=== PATIENT | male | born 1975 | race Caucasian/White ===

== ENCOUNTER 2017-08-02 22:11 | Emergency (ER) | payer OTHER ==
[~2017-08-02] VITALS: Ht 185.4 cm; Wt 88.5 kg
--- NOTE | 2017-08-03 01:13 | NUR ---
DR. ADAN IS AT THE BEDSIDE
[2017-08-03] MEDS ORDERED: ONDANSETRON HCL/PF 4 MG/2 ML VIAL ONE (01:19)
[2017-08-03] MEDS ORDERED: KETOROLAC TROMETHAMINE INJ 30 MG/ML VIAL ONE (01:19)
[2017-08-03 01:30] LABS: BASOPHILS % (AUTO) 0.2 % (0.0-2.0); EOSINOPHILS # (AUTO) 0.2 /CMM (0.0-0.7); HEMATOCRIT 44 % (39-51); HEMOGLOBIN 14.9 g/dL (13.5-17.5); LYMPHOCYTES % (AUTO) 30.9 % (20.0-44.0); MEAN CORPUSCULAR HEMOGLOBIN 31 PG (26.0-33.0); MEAN CORPUSCULAR HGB CONC 34 g/dl (31.0-36.0); MEAN CORPUSCULAR VOLUME 92 fL (80-96); MONOCYTES # (AUTO) 0.5 /CMM (0.1-1.30); MONOCYTES % (AUTO) 5.1 % (2.0-12.0); NEUTROPHILS % (AUTO) 61.8 % (43.0-81.0); PLATELET COUNT (AUTO) 183 /CMM (150-450); RDW COEFFICIENT OF VARIATION 11.7 (11.5-15.0); RED BLOOD CELL COUNT(AUTO) 4.83 MIL/uL (4.5-6.0); WHITE BLOOD COUNT (AUTO) 9.7 K/uL (4.3-11.0)
[2017-08-03] MEDS ORDERED: ONDANSETRON HCL/PF 4 MG/2 ML VIAL IVP ONE (01:30)
[2017-08-03] MEDS ORDERED: KETOROLAC TROMETHAMINE INJ 30 MG/ML VIAL IV ONE (01:30)
[2017-08-03] MEDS ORDERED: IV NS 0.9% 1,000 ML BAG IV ONE (01:30)
[2017-08-03] MEDS ORDERED: IV NS 0.9% 250 ML IV ONE (01:37)
[2017-08-03] MEDS ORDERED: IOHEXOL-350 100 ML VIAL IV ONE (01:37)
--- NOTE | 2017-08-03 01:38 | NUR ---
CXR DONE AT THE BEDSIDE.
[2017-08-03 01:55] LABS: ALANINE AMINOTRANSFERASE 33 U/L (12-78); ALBUMIN 4.1 g/dL (3.4-5.0); ALKALINE PHOSPHATASE 66 U/L (46-116); ASPARTATE AMINOTRANSFERASE 25 U/L (15-37); BILIRUBIN,DIRECT 0.1 mg/dL (0.0-0.2); BILIRUBIN,TOTAL 0.3 mg/dL (0.2-1.0); CALCIUM, SERUM 9.4 mg/dL (8.5-10.1); CARBON DIOXIDE 27 mmol/L (21-32); CHLORIDE 103 mmol/L (98-107); CREATININE 1.1 mg/dL (0.6-1.3); GLUCOSE 98 mg/dL (74-106); POTASSIUM 3.7 mmol/L (3.5-5.1); SODIUM SERUM 140 mmol/L (136-145); TOTAL PROTEIN, SERUM 7.6 g/dL (6.4-8.2); UREA NITROGEN, BLOOD 15 mg/dL (7-18)
[2017-08-03 01:57] LABS: TROPONIN I < 0.017 ng/mL (0.00-0.056)
[2017-08-03 02:05] LABS: INR 0.91 (0.87-1.13); PROTHROMBIN TIME 9.5 SECS (9.5-12.7)
--- NOTE | 2017-08-03 02:05 | NUR ---
PT WENT TO CT VIA WC.
--- NOTE | 2017-08-03 02:21 | NUR ---
PT RETURNED FROM CT.
[2017-08-03 03:11] VITALS: BP 137/78
== END 2017-08-03 03:12 | disposition home or self-care (01) ==
LOC: ER 22:15
DX: R07.81 Pleurodynia (principal)
CPT/HCPCS: 36415; 71010; 71275; 80048; 80076; 84484; 85025; 85730; 93005; 96361; 96374; 96375; 99285; A4606; J1885; J2405; J7030; J7050; Q9967; Z7610

== ENCOUNTER 2021-08-09 12:23 | Emergency (ER) | payer BC ==
[~2021-08-09] VITALS: Ht 185.4 cm; Wt 88.5 kg
--- NOTE | 2021-08-09 12:27 | NUR ---
SENT FROM URGENT CARE C/O RIGHT CALF PAIN R/O DVT. A&OX4. PT RECENTLY TRAVELED. VITAL SIGNS WITHIN NORMAL LIMITS. BREATHING EVEN AND UNLABORED.
--- NOTE | 2021-08-09 14:21 | NUR ---
ULTRASOUND AT BEDSIDE
[2021-08-09] MEDS ORDERED: RIVA10TA PO (15:48)
[2021-08-09 16:03] VITALS: BP 125/73
--- NOTE | 2021-08-09 16:03 | NUR ---
Patient discharged to home in stable condition. Written and verbal after care instructions given. Patient verbalizes understanding of instruction.
== END 2021-08-09 16:03 | disposition home or self-care (01) ==
LOC: ER 12:30
DX: I82.811 Embolism and thrombosis of superficial veins of right lower extremity (principal)
CPT/HCPCS: 93971-TC